=== PATIENT | male | born 1950 | race Two or more races ===

== ENCOUNTER 2023-03-04 05:16 | Inpatient (IN) | payer OTHER ==
[~2023-03-04] VITALS: Ht 175.3 cm; Wt 105.4 kg
[2023-03-04] MEDS ORDERED: ACCU-CHEK COMFORT CURVE STRIP VI ONE (06:00)
[2023-03-04 06:43] LABS: Basophils # (auto) 0 10 ^3/uL (0-0.2); Basophils % (auto) 0.2 % (0.0-2.0); Eosinophils # (auto) 0 10 ^3/uL (0-0.8); Hematocrit 47.3 % (41.0-53.0); Hemoglobin 15.7 g/dL (13.5-17.5); Lymphocytes # (auto) 0.6 10 ^3/uL (0.4-5.4); Lymphocytes % (auto) 2.7 % (10.0-50.0); Mean Corpuscular Hemoglobin 30.7 pg (28.0-32.0); Mean Corpuscular Hgb Conc. 33.2 g/dL (32.0-36.0); Mean Corpuscular Volume 92.7 fL (80.0-100.0); Monocytes % (auto) 4.7 % (0.0-12.0); Neutrophils # (auto) 19.4 10 ^3/uL (1.6-8.6); Neutrophils % (auto) 92.4 % (37.0-80.0); Nucleated Red Blood Cells % 0.1 %; Red Cell Distribution Width 13.7 % (11.8-14.3)
[2023-03-04] MEDS ORDERED: SODIUM CHLORIDE 0.9% 1,000 ML IV ONE ×2 (06:45)
[2023-03-04 06:46] LABS: Alanine Aminotransferase 76 U/L (7-40); Albumin 3.8 g/dL (3.2-4.8); Alkaline Phosphatase 82 U/L (46-116); Anion Gap 11 (5-15); Aspartate Aminotransferase 60 U/L (13-40); BUN/Creatinine Ratio 26.8 (10.0-20.0); Blood Urea Nitrogen 40 mg/dL (9-23); Calcium 8.3 mg/dL (8.7-10.4); Carbon Dioxide 22 mmol/L (20-30); Chloride 100 mmol/L (98-107); Glucose 192 mg/dL (74-106); Potassium 4.1 mmol/L (3.5-5.1); Sodium 133 mmol/L (136-145)
[2023-03-04 06:47] LABS: Bilirubin, Total 2.1 mg/dL (0.2-1.0); Total Protein 6.1 g/dL (5.7-8.2)
[2023-03-04 07:02] LABS: Lactic Acid w/Reflex 4.5 mmol/L (0.4-2.0)
[2023-03-04] MEDS ORDERED: ASPirin 325 MG TAB PO ONE (07:15)
[2023-03-04] MEDS ORDERED: ENOXAPARIN SOD 100 MG/1 ML SYRINGE SC ONE (07:15)
[2023-03-04 07:54] VITALS: PULSE 113; RESP 20; O2SAT 95
[2023-03-04] MEDS ORDERED: metroNIDAZOLE 500MG/100ML 100 ML IV ONE (08:00)
[2023-03-04] MEDS ORDERED: cefTRIAXone 1GM/50ML D5W 50 ML IV ONE (08:00)
[2023-03-04] MEDS ORDERED: HEPARIN DRIP/D5W 100UNITS/ML 250 ML IV SCH (08:15)
[2023-03-04] MEDS ORDERED: HEPARIN SODIUM (PORCINE) 5000 UNITS/ML 1ML VIAL IV ONE (08:15)
[2023-03-04 08:34] LABS: INR 1.15 (0.9-1.15); Partial Thromboplastin Time 27.8 SEC (24.5-34.5)
[2023-03-04] MEDS ORDERED: NITROGLYCERIN 0.4 MG SL TAB SL PRN (09:30)
[2023-03-04] MEDS ORDERED: DEXTROSE (50%) 50ML SYRG IV PRN (09:30)
[2023-03-04] MEDS ORDERED: MORPHINE SULFATE INJ 2 MG/ml SYRG IV PRN (09:30)
[2023-03-04] MEDS ORDERED: METOPROLOL TARTRATE 25 MG TAB PO ONE (10:15)
[2023-03-04] MEDS ORDERED: IOHEXOL 300 MG/ML 100ML BOTTLE IJ ONE (10:19)
[2023-03-04 10:44] LABS: Triglycerides 224 mg/dL (< 150)
[2023-03-04 10:45] LABS: LDL Cholesterol 117 mg/dL (< 100)
[2023-03-04 10:46] LABS: Cholesterol 175 mg/dL (< 200); HDL Cholesterol 16 mg/dL (40-59)
[2023-03-04] MEDS: SODIUM CHLORIDE 0.9% 1,000 ML IV SCH (11:24)
[2023-03-04] MEDS: ONDANSETRON HCL 4 MG/2 ML VIAL IV PRN ×2 (11:24→18:15)
[2023-03-04] MEDS: MORPHINE SULFATE INJ 2 MG/ml SYRG IV PRN ×2 (11:25→18:16)
[2023-03-04 11:58] LABS: COVID19 ANTIGEN SOFIA FIA NEGATIVE (NEGATIVE); Rapid Influenza A Negative (Negative); Rapid Influenza B Negative (Negative)
[2023-03-04] MEDS: InsuLIN REG 1unit/0.01ml Soln (100units/ml) SC SCH ×2 (12:00→18:00)
[2023-03-04] MEDS: ACCU-CHEK COMFORT CURVE STRIP VI SCH ×2 (12:54→18:00)
[2023-03-04] MEDS: PIPERACILLIN-TAZOB 3.375GM 100 ML IV SCH (13:05)
[2023-03-04] MEDS ORDERED: PIPERACILLIN-TAZOB 3.375GM 100 ML IV SCH (14:00)
[2023-03-04 15:15] LABS: Urine Bacteria NONE SEEN /hpf (None Seen); Urine Blood 3+ /uL (Negative); Urine Clarity Clear (Clear); Urine Color Yellow (Yellow); Urine Protein, UAD 1+ (Negative); Urine WBC 7 /hpf (0 - 3); Urine pH 6.5 (5.0-8.0)
[2023-03-04] MEDS ORDERED: VANCOMYCIN PER PHARMACY 0 MG IV SCH (15:15)
[2023-03-04 15:16] LABS: Urine Specific Gravity > 1.050 (1.001-1.035)
[2023-03-04 15:24] LABS: Amphetamine Screen, Urine Neg (NEGATIVE); Barbiturate Scree,Urine Neg (NEGATIVE); Benzodiazephine Screen, Urine Neg (NEGATIVE); Cannabinoid Screen, Urine Neg (NEGATIVE); Cocaine Screen, Urine Neg (NEGATIVE); Opiate Scree,Urine Neg (NEGATIVE); Phencyclidine Screen, Urine Neg (NEGATIVE)
[2023-03-04] MEDS ORDERED: VANCOMYCIN 1GM/200ML 250 ML IV ONE (15:30)
[2023-03-04 19:50] VITALS: PULSE 119; RESP 38; O2SAT 88
[2023-03-04] MEDS ORDERED: VANCOMYCIN 500 MG in D5W 5% 100 ML IV ONE (22:15)
[2023-03-05] MEDS: ENOXAPARIN SOD 100 MG/1 ML SYRINGE SC SCH ×2 (00:15→00:17)
[2023-03-05] MEDS: METOPROLOL TARTRATE 25 MG TAB PO SCH ×3 (00:16→22:50)
[2023-03-05] MEDS: PIPERACILLIN-TAZOB 3.375GM 100 ML IV SCH ×4 (00:26→22:49)
[2023-03-05] MEDS ORDERED: VANCOMYCIN 500 MG in D5W 5% 100 ML IV SCH ×2 (00:30→09:00)
[2023-03-05 01:29] VITALS: BP 144/83; PULSE 109; PULSE 92; RESP 20; TEMP 99.8; O2SAT 92; O2SAT 95
[2023-03-05] MEDS: SODIUM CHLORIDE 0.9% 1,000 ML IV SCH ×2 (02:10→18:50)
[2023-03-05 05:16] LABS: Basophils # (auto) 0 10 ^3/uL (0-0.2); Basophils % (auto) 0.2 % (0.0-2.0); Eosinophils # (auto) 0 10 ^3/uL (0-0.8); Hematocrit 43.4 % (41.0-53.0); Hemoglobin 14.6 g/dL (13.5-17.5); Lymphocytes % (auto) 6.7 % (10.0-50.0); Mean Corpuscular Hemoglobin 30.7 pg (28.0-32.0); Mean Corpuscular Hgb Conc. 33.6 g/dL (32.0-36.0); Mean Corpuscular Volume 91.3 fL (80.0-100.0); Monocytes # (auto) 0.7 10 ^3/uL (0-1.3); Monocytes % (auto) 4.4 % (0.0-12.0); Neutrophils # (auto) 13.2 10 ^3/uL (1.6-8.6); Neutrophils % (auto) 88.7 % (37.0-80.0); Red Blood Cells 4.75 10^6/uL (4.5-5.90); Red Cell Distribution Width 14.1 % (11.8-14.3); White Blood Cell 14.9 10^3/uL (4.4-10.8)
[2023-03-05 05:42] LABS: Alanine Aminotransferase 66 U/L (7-40); Alkaline Phosphatase 71 U/L (46-116)
[2023-03-05 05:43] LABS: Albumin 3.4 g/dL (3.2-4.8); Anion Gap 10 (5-15); Aspartate Aminotransferase 94 U/L (13-40); BUN/Creatinine Ratio 26.4 (10.0-20.0); Bilirubin, Total 1.9 mg/dL (0.2-1.0); Blood Urea Nitrogen 39 mg/dL (9-23); Carbon Dioxide 20 mmol/L (20-30); Chloride 103 mmol/L (98-107); Glucose 131 mg/dL (74-106); Potassium 3.6 mmol/L (3.5-5.1); Sodium 133 mmol/L (136-145); Total Protein 5.9 g/dL (5.7-8.2)
[2023-03-05] MEDS: ACETAMINOPHEN 325 MG TAB PO PRN (06:24)
[2023-03-05 08:00] VITALS: PULSE 106; PULSE 85; RESP 21; O2SAT 93
[2023-03-05] MEDS ORDERED: cefTRIAXone 1GM/50ML D5W 50 ML IV SCH (09:00)
[2023-03-05] MEDS: VANCOMYCIN 1GM/200ML 250 ML IV SCH (09:01)
[2023-03-05] MEDS: ASPirin 81 mg TAB PO SCH (09:02)
[2023-03-05] MEDS ORDERED: ENOXAPARIN SOD 40 MG/0.4 ML SYRINGE SC SCH (10:00)
[2023-03-05 12:00] VITALS: BP 123/69; PULSE 81; RESP 21; TEMP 98.1; O2SAT 93
[2023-03-05] MEDS ORDERED: GADOTERATE MEG 10 MMOL/20ml INJ (0.5MMOL/ml) IV ONE (14:02)
[2023-03-05] MEDS ORDERED: TRAM50TA2 PO (15:46)
[2023-03-05] MEDS ORDERED: VALA500T33 PO (15:46)
[2023-03-05] MEDS ORDERED: METH4TAB9 PO (15:46)
[2023-03-05] MEDS ORDERED: LISI40TA16 PO (15:46)
[2023-03-05 16:00] VITALS: BP 115/56; PULSE 87; RESP 22; TEMP 97.8; O2SAT 90
[2023-03-05] MEDS ORDERED: MORPHINE SULFATE INJ 2 MG/ml SYRG IV PRN ×2 (16:30→18:15)
[2023-03-05] MEDS ORDERED: NITROGLYCERIN 0.4 MG SL TAB SL PRN ×2 (16:30→18:15)
[2023-03-05] MEDS: MORPHINE SULFATE INJ 2 MG/ml SYRG IV PRN (17:04)
[2023-03-05] MEDS ORDERED: SODIUM CHLORIDE 0.9% 250 ML IV ONE (18:00)
[2023-03-05] MEDS ORDERED: LIDOCAINE HCL 2% TOP JELLY 5ML TOP PRN (18:00)
[2023-03-05 20:00] VITALS: PULSE 83; PULSE 92; RESP 21; O2SAT 94
[2023-03-05 20:53] VITALS: BP 122/71; PULSE 89; RESP 16; TEMP 97.8; O2SAT 90
[2023-03-05] MEDS: CLINDAMYCIN 900MG IV 50 ML IV SCH (20:56)
[2023-03-05] MEDS: VALACYCLOVIR HCL 500 MG TAB PO SCH (22:00)
[2023-03-06] VITALS (35 sets, daily range): BP systolic 113–147; BP diastolic 54–80; PULSE 75–88; RESP 20–40; TEMP 98.4–98.9; O2SAT 87–96
[2023-03-06] MEDS: VANCOMYCIN 1GM/200ML 250 ML IV SCH ×2 (03:31→22:04)
[2023-03-06] MEDS: SODIUM CHLORIDE 0.9% 1,000 ML IV SCH (03:33)
[2023-03-06 05:05] LABS: Basophils # (auto) 0 10 ^3/uL (0-0.2); Basophils % (auto) 0.1 % (0.0-2.0); Eosinophils # (auto) 0 10 ^3/uL (0-0.8); Hematocrit 41.2 % (41.0-53.0); Hemoglobin 13.8 g/dL (13.5-17.5); Lymphocytes # (auto) 0.8 10 ^3/uL (0.4-5.4); Lymphocytes % (auto) 6.2 % (10.0-50.0); Mean Corpuscular Hemoglobin 31.1 pg (28.0-32.0); Mean Corpuscular Hgb Conc. 33.4 g/dL (32.0-36.0); Mean Corpuscular Volume 93.2 fL (80.0-100.0); Monocytes # (auto) 0.6 10 ^3/uL (0-1.3); Monocytes % (auto) 4.5 % (0.0-12.0); Neutrophils # (auto) 11.6 10 ^3/uL (1.6-8.6); Neutrophils % (auto) 89.2 % (37.0-80.0); Red Blood Cells 4.42 10^6/uL (4.5-5.90); Red Cell Distribution Width 14.2 % (11.8-14.3)
[2023-03-06 05:06] LABS: Alanine Aminotransferase 78 U/L (7-40); Albumin 3.1 g/dL (3.2-4.8); Alkaline Phosphatase 74 U/L (46-116); Anion Gap 10 (5-15); Aspartate Aminotransferase 106 U/L (13-40); BUN/Creatinine Ratio 34.3 (10.0-20.0); Blood Urea Nitrogen 46 mg/dL (9-23); Calcium 7.9 mg/dL (8.7-10.4); Carbon Dioxide 21 mmol/L (20-30); Chloride 104 mmol/L (98-107); Glucose 132 mg/dL (74-106); Potassium 3.5 mmol/L (3.5-5.1); Sodium 135 mmol/L (136-145)
[2023-03-06 05:07] LABS: Bilirubin, Total 1.3 mg/dL (0.2-1.0); Total Protein 5.3 g/dL (5.7-8.2)
[2023-03-06] MEDS: CLINDAMYCIN 900MG IV 50 ML IV SCH ×3 (05:09→23:11)
[2023-03-06] MEDS: PIPERACILLIN-TAZOB 3.375GM 100 ML IV SCH ×2 (06:22→15:00)
[2023-03-06] MEDS: VALACYCLOVIR HCL 500 MG TAB PO SCH ×2 (08:20→14:00)
[2023-03-06] MEDS: METOPROLOL TARTRATE 25 MG TAB PO SCH ×2 (08:24→22:04)
[2023-03-06] MEDS: ASPirin 81 mg TAB PO SCH (08:25)
[2023-03-06] MEDS ORDERED: LIDOCAINE 1% (LOCAL ANESTH.) PF 5ml SDV ONE (14:24)
[2023-03-06] MEDS: traMADol HCL 50 MG TAB PO PRN (15:00)
[2023-03-06 15:12] LABS: INR 1.09 (0.9-1.15); Prothrombin Time 11.4 sec (9.3-11.8)
[2023-03-06 17:24] LABS: Protein, CSF 117.2 mg/dL (15-45)
[2023-03-06 17:49] LABS: CSF White Blood Cells 31 CUMM (0-5)
[2023-03-06] MEDS: FLUCONAZOLE 200MG/100ML 100 ML IV SCH (20:50)
[2023-03-06] MEDS: CEFTRIAXONE SODIUM 2 GM in D5W 5% 100 ML IV SCH (21:00)
[2023-03-06] MEDS: ACYCLOVIR SOD 50MG/ML 800 MG in SODIUM CHL 0.9% 250 ML IV SCH (22:00)
[2023-03-07] VITALS (25 sets, daily range): BP systolic 106–152; BP diastolic 54–85; PULSE 72–103; RESP 17–36; TEMP 97.6–98.1; O2SAT 87–97
[2023-03-07] MEDS: PIPERACILLIN-TAZOB 3.375GM 100 ML IV SCH ×4 (00:21→21:49)
[2023-03-07] MEDS: SODIUM CHLORIDE 0.9% 1,000 ML IV SCH ×2 (04:10→20:50)
[2023-03-07] MEDS: CLINDAMYCIN 900MG IV 50 ML IV SCH ×3 (04:59→21:05)
[2023-03-07] MEDS: traMADol HCL 50 MG TAB PO PRN (05:27)
[2023-03-07] MEDS: ACYCLOVIR SOD 50MG/ML 800 MG in SODIUM CHL 0.9% 250 ML IV SCH ×3 (08:14→21:50)
[2023-03-07 08:17] LABS: Alanine Aminotransferase 100 U/L (7-40); Albumin 2.9 g/dL (3.2-4.8); Alkaline Phosphatase 86 U/L (46-116); Anion Gap 8 (5-15); Aspartate Aminotransferase 129 U/L (13-40); BUN/Creatinine Ratio 39.7 (10.0-20.0); Bilirubin, Total 1.7 mg/dL (0.2-1.0); Blood Urea Nitrogen 46 mg/dL (9-23); Calcium 7.5 mg/dL (8.5-10.1); Carbon Dioxide 22 mmol/L (20-30); Chloride 106 mmol/L (98-107); Glucose 144 mg/dL (74-106); Potassium 3.5 mmol/L (3.5-5.1); Sodium 136 mmol/L (136-145); Total Protein 5.3 g/dL (5.7-8.2)
[2023-03-07 08:22] LABS: Basophils # (auto) 0 10 ^3/uL (0-0.2); Basophils % (auto) 0.1 % (0.0-2.0); Eosinophils # (auto) 0 10 ^3/uL (0-0.8); Eosinophils % (auto) 0.2 % (0.0-7.0); Hematocrit 38.5 % (41.0-53.0); Hemoglobin 12.7 g/dL (13.5-17.5); Lymphocytes # (auto) 1.2 10 ^3/uL (0.4-5.4); Lymphocytes % (auto) 6.3 % (10.0-50.0); Mean Corpuscular Hemoglobin 30.6 pg (28.0-32.0); Mean Corpuscular Volume 92.8 fL (80.0-100.0); Monocytes # (auto) 0.7 10 ^3/uL (0-1.3); Monocytes % (auto) 3.6 % (0.0-12.0); Neutrophils # (auto) 16.7 10 ^3/uL (1.6-8.6); Neutrophils % (auto) 89.8 % (37.0-80.0); Red Blood Cells 4.15 10^6/uL (4.5-5.90); Red Cell Distribution Width 14.3 % (11.8-14.3); White Blood Cell 18.6 10^3/uL (4.4-10.8)
[2023-03-07 08:43] LABS: Platelet Estimate Decreased
[2023-03-07 08:44] LABS: Polychromasia Slight
[2023-03-07] MEDS: CEFTRIAXONE SODIUM 2 GM in D5W 5% 100 ML IV SCH ×2 (09:32→21:09)
[2023-03-07] MEDS: ASPirin 81 mg TAB PO SCH (10:33)
[2023-03-07] MEDS: FLUCONAZOLE 200MG/100ML 100 ML IV SCH ×2 (10:34→11:27)
[2023-03-07] MEDS: METOPROLOL TARTRATE 25 MG TAB PO SCH ×2 (10:34→21:50)
[2023-03-07 11:00] LABS: Erythrocyte Sedimentation Rate 60 mm/hr (0-20)
[2023-03-07] MEDS: VANCOMYCIN 1GM/200ML 250 ML IV SCH ×2 (11:31→21:02)
[2023-03-08] VITALS (26 sets, daily range): BP systolic 119–166; BP diastolic 58–79; PULSE 80–108; RESP 20–36; TEMP 97.7–99.7; O2SAT 90–96
[2023-03-08 04:06] LABS: Hematocrit 38.1 % (41.0-53.0); Hemoglobin 12.6 g/dL (13.5-17.5); Mean Corpuscular Hemoglobin 31.2 pg (28.0-32.0); Mean Corpuscular Hgb Conc. 33.1 g/dL (32.0-36.0); Mean Corpuscular Volume 94.3 fL (80.0-100.0); Red Blood Cells 4.04 10^6/uL (4.5-5.90); Red Cell Distribution Width 14.5 % (11.8-14.3); White Blood Cell 17.7 10^3/uL (4.4-10.8)
[2023-03-08 04:08] LABS: Alanine Aminotransferase 105 U/L (7-40); Albumin 2.7 g/dL (3.2-4.8); Alkaline Phosphatase 97 U/L (46-116); Anion Gap 8 (5-15); Aspartate Aminotransferase 108 U/L (13-40); BUN/Creatinine Ratio 30.8 (10.0-20.0); Bilirubin, Total 1.3 mg/dL (0.2-1.0); Calcium 7.2 mg/dL (8.7-10.4); Carbon Dioxide 21 mmol/L (20-30); Chloride 107 mmol/L (98-107); Glucose 122 mg/dL (74-106); Potassium 3.6 mmol/L (3.5-5.1); Sodium 136 mmol/L (136-145); Total Protein 5.2 g/dL (5.7-8.2)
[2023-03-08 04:14] LABS: Blood Urea Nitrogen 36 mg/dL (9-23)
[2023-03-08 04:18] LABS: Basophils % (manual) 0 (0.0-2.0); Blast Cells 0; Eosinophils % (manual) 0 (0-7); Metamyelocytes % 0; Myelocytes % 0; Promyelocytes % 0; Reactive Lymphocytes 0
[2023-03-08] MEDS: CLINDAMYCIN 900MG IV 50 ML IV SCH (04:33)
[2023-03-08] MEDS: PIPERACILLIN-TAZOB 3.375GM 100 ML IV SCH ×3 (05:30→22:12)
[2023-03-08] MEDS: ACYCLOVIR SOD 50MG/ML 800 MG in SODIUM CHL 0.9% 250 ML IV SCH ×3 (05:30→22:13)
[2023-03-08] MEDS: VANCOMYCIN 1GM/200ML 250 ML IV SCH ×2 (06:32→18:02)
[2023-03-08 07:58] LABS: Band Neutrophils % (manual) 2; Lymphocytes % (manual) 7 (10.0-50.0)
[2023-03-08 07:59] LABS: Monocytes % (manual) 1 (0-12); Platelet Estimate Adequate
[2023-03-08] MEDS: HYDROcodone-ACET 5/325MG TAB PO PRN (08:27)
[2023-03-08] MEDS: CEFTRIAXONE SODIUM 2 GM in D5W 5% 100 ML IV SCH ×2 (08:58→20:56)
[2023-03-08] MEDS: METOPROLOL TARTRATE 25 MG TAB PO SCH ×2 (10:06→21:30)
[2023-03-08] MEDS: ASPirin 81 mg TAB PO SCH (10:06)
[2023-03-08] MEDS: FLUCONAZOLE 200MG/100ML 100 ML IV SCH ×2 (10:06→11:03)
[2023-03-08] MEDS: SODIUM CHLORIDE 0.9% 1,000 ML IV SCH (13:00)
[2023-03-08] MEDS ORDERED: FUROSEMIDE 40 MG/4 ML VIAL IV ONE (14:00)
[2023-03-08 14:35] LABS: Folate (Folic Acid) 5.73 ng/mL (>5.38)
[2023-03-09] VITALS (48 sets, daily range): BP systolic 81–173; BP diastolic 39–76; PULSE 86–107; RESP 10–36; TEMP 98–99.5; O2SAT 91–100
[2023-03-09] MEDS: VANCOMYCIN 1GM/200ML 250 ML IV SCH ×2 (03:35→13:13)
[2023-03-09] MEDS: ONDANSETRON HCL 4 MG/2 ML VIAL IV PRN (04:32)
[2023-03-09] MEDS: ACYCLOVIR SOD 50MG/ML 800 MG in SODIUM CHL 0.9% 250 ML IV SCH (06:16)
[2023-03-09] MEDS: PIPERACILLIN-TAZOB 3.375GM 100 ML IV SCH (06:16)
[2023-03-09 07:06] LABS: Immunoglobulin A 251 mg/dL (61-437); Immunoglobulin G, Serum 689 mg/dL (603-1613); Immunoglobulin M 194 mg/dL (15-143)
[2023-03-09 08:22] LABS: Basophils # (auto) 0.2 10 ^3/uL (0-0.2); Basophils % (auto) 0.7 % (0.0-2.0); Eosinophils # (auto) 0.1 10 ^3/uL (0-0.8); Eosinophils % (auto) 0.2 % (0.0-7.0); Hematocrit 28.6 % (41.0-53.0); Hemoglobin 9.5 g/dL (13.5-17.5); Lymphocytes # (auto) 1.6 10 ^3/uL (0.4-5.4); Lymphocytes % (auto) 7.1 % (10.0-50.0); Mean Corpuscular Hemoglobin 30.7 pg (28.0-32.0); Mean Corpuscular Hgb Conc. 33.1 g/dL (32.0-36.0); Mean Corpuscular Volume 92.6 fL (80.0-100.0); Monocytes # (auto) 0.7 10 ^3/uL (0-1.3); Monocytes % (auto) 2.9 % (0.0-12.0); Neutrophils # (auto) 20.4 10 ^3/uL (1.6-8.6); Neutrophils % (auto) 89.1 % (37.0-80.0); Red Blood Cells 3.08 10^6/uL (4.5-5.90); Red Cell Distribution Width 14.2 % (11.8-14.3); White Blood Cell 22.9 10^3/uL (4.4-10.8)
[2023-03-09 08:34] LABS: Alanine Aminotransferase 73 U/L (7-40); Albumin 2.4 g/dL (3.2-4.8); Alkaline Phosphatase 79 U/L (46-116); Anion Gap 5 (5-15); Aspartate Aminotransferase 56 U/L (13-40); BUN/Creatinine Ratio 42.7 (10.0-20.0); Blood Urea Nitrogen 41 mg/dL (9-23); Calcium 6.9 mg/dL (8.5-10.1); Carbon Dioxide 24 mmol/L (20-30); Chloride 111 mmol/L (98-107); Glucose 156 mg/dL (74-106); Potassium 3.3 mmol/L (3.5-5.1); Sodium 140 mmol/L (136-145)
[2023-03-09 08:35] LABS: Bilirubin, Total 0.6 mg/dL (0.2-1.0); Total Protein 4.6 g/dL (5.7-8.2)
[2023-03-09] MEDS: CEFTRIAXONE SODIUM 2 GM in D5W 5% 100 ML IV SCH (09:00)
[2023-03-09 09:03] LABS: COVID19 ANTIGEN SOFIA FIA NEGATIVE (NEGATIVE)
[2023-03-09 10:06] LABS: Anti-Nuclear Antibody Direct Negative (Negative)
[2023-03-09] MEDS: ASPirin 81 mg TAB PO SCH (10:22)
[2023-03-09] MEDS: FLUCONAZOLE 200MG/100ML 100 ML IV SCH ×2 (10:22→11:02)
[2023-03-09] MEDS: METOPROLOL TARTRATE 25 MG TAB PO SCH ×2 (10:22→22:00)
[2023-03-09] MEDS: SODIUM CHLORIDE 0.9% 1,000 ML IV SCH (13:14)
[2023-03-09] MEDS ORDERED: ACYCLOVIR 10MG/KG Q8HR PER RX 0 ML IV SCH (14:15)
[2023-03-09] MEDS: DAPTOMYCIN IV SCH (17:10)
[2023-03-09] MEDS: SODIUM CHL 0.9% IV SCH (17:10)
[2023-03-09] MEDS ORDERED: NOREPINEPHRINE 8 MG/250ML KIT 250 ML IV SCH (17:15)
[2023-03-09] MEDS: traMADol HCL 50 MG TAB PO PRN (17:39)
[2023-03-09 17:45] LABS: Hematocrit 17.9 % (41.0-53.0)
[2023-03-09] MEDS ORDERED: LACTATED RINGER'S 1,000 ML IV ONE ×2 (17:45→20:15)
[2023-03-09 17:46] LABS: Hemoglobin 5.6 g/dL (13.5-17.5)
[2023-03-09] MEDS: ACYCLOVIR 400 MG TAB PO SCH ×2 (17:57→21:23)
[2023-03-09] MEDS ORDERED: PANTOPRAZOLE 80 MG in SODIUM CHL 0.9% 100 ML IV ONE (18:00)
[2023-03-09] MEDS ORDERED: LIDOCAINE 1% (LOCAL ANESTH.) PF 5ml SDV ONE (18:29)
[2023-03-09] MEDS ORDERED: LIDOCAINE 1% HCL (LOCAL ANESTH.) INJ 20ML MDV SC ONE (18:45)
[2023-03-09] MEDS: PANTOPRAZOLE 40mg/50ML NS AE 50 ML IV SCH (18:47)
[2023-03-09] MEDS ORDERED: LORazepam 0.5 MG TAB PO ONE (19:30)
[2023-03-09] MEDS: OCTREOTIDE ACETATE 500 MCG in SODIUM CHL 0.9% 99 ML IV SCH (21:00)
[2023-03-09] MEDS: NOREPINEPHRINE 8 MG/250ML KIT 250 ML IV SCH (21:02)
[2023-03-09] MEDS: CEFTAROLINE 600 MG in SODIUM CHL 0.9% 250 ML IV SCH (21:17)
[2023-03-09] MEDS: LOSARTAN POTASSIUM 50 MG TAB PO SCH (21:23)
[2023-03-10] VITALS (69 sets, daily range): BP systolic 91–154; BP diastolic 46–83; PULSE 67–95; RESP 14–30; TEMP 97.9–99.4; O2SAT 82–99
[2023-03-10] MEDS: PANTOPRAZOLE 40mg/50ML NS AE 50 ML IV SCH ×5 (01:37→22:24)
[2023-03-10 04:44] LABS: Hematocrit 28.7 % (41.0-53.0); Hemoglobin 9.3 g/dL (13.5-17.5); Mean Corpuscular Hemoglobin 29.3 pg (28.0-32.0); Mean Corpuscular Hgb Conc. 32.5 g/dL (32.0-36.0); Mean Corpuscular Volume 90.3 fL (80.0-100.0); Red Blood Cells 3.18 10^6/uL (4.5-5.90); Red Cell Distribution Width 14.6 % (11.8-14.3); White Blood Cell 26.1 10^3/uL (4.4-10.8)
[2023-03-10] MEDS: OCTREOTIDE ACETATE 500 MCG in SODIUM CHL 0.9% 99 ML IV SCH ×2 (05:07→14:00)
[2023-03-10] MEDS: ACYCLOVIR 400 MG TAB PO SCH ×5 (05:08→22:20)
[2023-03-10 05:10] LABS: Alanine Aminotransferase 74 U/L (7-40); Albumin 1.8 g/dL (3.2-4.8); Alkaline Phosphatase 62 U/L (46-116); Anion Gap 8 (5-15); Aspartate Aminotransferase 60 U/L (13-40); BUN/Creatinine Ratio 30.3 (10.0-20.0); Bilirubin, Total 0.5 mg/dL (0.2-1.0); Blood Urea Nitrogen 47 mg/dL (9-23); Calcium 6.6 mg/dL (8.5-10.1); Carbon Dioxide 21 mmol/L (20-30); Chloride 112 mmol/L (98-107); Glucose 173 mg/dL (74-106); Potassium 4.4 mmol/L (3.5-5.1); Sodium 141 mmol/L (136-145); Total Protein 3.6 g/dL (5.7-8.2)
[2023-03-10 05:16] LABS: Band Neutrophils % (manual) 0; Basophils % (manual) 0 (0.0-2.0); Blast Cells 0; Eosinophils % (manual) 0 (0-7); Metamyelocytes % 0; Myelocytes % 0; Promyelocytes % 0; Reactive Lymphocytes 0
[2023-03-10 06:58] LABS: INR 1.31 (0.9-1.15); Partial Thromboplastin Time 25.9 SEC (24.5-34.5); Prothrombin Time 13.5 sec (9.3-11.8)
[2023-03-10] MEDS ORDERED: LACTATED RINGER'S 1,000 ML IV ONE (09:00)
[2023-03-10 10:01] LABS: Lymphocytes % (manual) 5 (10.0-50.0); Monocytes % (manual) 8 (0-12)
[2023-03-10 10:02] LABS: Platelet Estimate Adequate
[2023-03-10] MEDS: ASPirin 81 mg TAB PO SCH (11:20)
[2023-03-10] MEDS: LOSARTAN POTASSIUM 50 MG TAB PO SCH (11:26)
[2023-03-10] MEDS: METOPROLOL TARTRATE 25 MG TAB PO SCH ×2 (11:27→22:20)
[2023-03-10] MEDS: CEFTAROLINE 600 MG in SODIUM CHL 0.9% 250 ML IV SCH ×2 (12:36→22:21)
[2023-03-10] MEDS: SODIUM CHLORIDE 0.9% 1,000 ML IV SCH (12:45)
[2023-03-10 13:35] LABS: Hematocrit 27.3 % (41.0-53.0); Hemoglobin 8.8 g/dL (13.5-17.5)
[2023-03-10 15:06] LABS: CAP Mandated Reflex to Culture Not Indicated (.); Cryptococcus Antigen CSF Negative (Negative)
[2023-03-10] MEDS ORDERED: LIDOCAINE VISCOUS 2% 15ML UD PO ONE (15:15)
[2023-03-10] MEDS ORDERED: fentaNYL CITRATE 100 MCG/2 ML VL IV ONE ×2 (15:15)
[2023-03-10] MEDS ORDERED: MIDAZOLAM HCL 2MG/2ML 2ml VIAL (1mg/ml) IV ONE ×2 (15:15)
[2023-03-10] MEDS: DAPTOMYCIN IV SCH (17:05)
[2023-03-10] MEDS: SODIUM CHL 0.9% IV SCH (17:05)
[2023-03-10] MEDS: NOREPINEPHRINE 8 MG/250ML KIT 250 ML IV SCH (17:06)
[2023-03-10 18:20] LABS: Hematocrit 24.5 % (41.0-53.0); Hemoglobin 8.1 g/dL (13.5-17.5)
[2023-03-10] MEDS: ACETAMINOPHEN 325 MG TAB PO PRN (22:46)
[2023-03-11] VITALS (45 sets, daily range): BP systolic 112–167; BP diastolic 46–67; PULSE 67–79; RESP 15–27; TEMP 97.1–98.3; O2SAT 92–100
[2023-03-11 05:07] LABS: RPR Non Reactive (Non Reactive)
[2023-03-11] MEDS: ACYCLOVIR 400 MG TAB PO SCH ×5 (05:28→22:42)
[2023-03-11] MEDS: PANTOPRAZOLE 40mg/50ML NS AE 50 ML IV SCH ×5 (05:29→20:06)
[2023-03-11] MEDS: OCTREOTIDE ACETATE 500 MCG in SODIUM CHL 0.9% 99 ML IV SCH ×3 (05:29→20:05)
[2023-03-11 05:45] LABS: Alanine Aminotransferase 46 U/L (7-40); Albumin 2.3 g/dL (3.2-4.8); Alkaline Phosphatase 55 U/L (46-116); Anion Gap 6 (5-15); Aspartate Aminotransferase 26 U/L (13-40); BUN/Creatinine Ratio 36.3 (10.0-20.0); Calcium 7.3 mg/dL (8.5-10.1); Carbon Dioxide 24 mmol/L (20-30); Chloride 114 mmol/L (98-107); Glucose 158 mg/dL (74-106); Potassium 4.2 mmol/L (3.5-5.1); Sodium 144 mmol/L (136-145)
[2023-03-11 05:46] LABS: Bilirubin, Total 0.4 mg/dL (0.2-1.0); Total Protein 4.1 g/dL (5.7-8.2)
[2023-03-11 06:05] LABS: Blood Urea Nitrogen 66 mg/dL (9-23)
[2023-03-11 06:15] LABS: Hemoglobin 7.1 g/dL (13.5-17.5); Mean Corpuscular Hgb Conc. 32.2 g/dL (32.0-36.0); Mean Corpuscular Volume 89.9 fL (80.0-100.0); Red Blood Cells 2.44 10^6/uL (4.5-5.90); Red Cell Distribution Width 14.9 % (11.8-14.3); White Blood Cell 20.1 10^3/uL (4.4-10.8)
[2023-03-11 06:21] LABS: Band Neutrophils % (manual) 0; Basophils % (manual) 0 (0.0-2.0); Blast Cells 0; Reactive Lymphocytes 0
[2023-03-11] MEDS: ACETAMINOPHEN 325 MG TAB PO PRN (09:05)
[2023-03-11] MEDS: LOSARTAN POTASSIUM 50 MG TAB PO SCH (09:38)
[2023-03-11] MEDS: METOPROLOL TARTRATE 25 MG TAB PO SCH ×2 (09:38→22:42)
[2023-03-11] MEDS: CEFTAROLINE 600 MG in SODIUM CHL 0.9% 250 ML IV SCH ×2 (09:45→22:42)
[2023-03-11] MEDS: HYDROcodone-ACET 5/325MG TAB PO PRN ×2 (10:58→17:32)
[2023-03-11 12:07] LABS: Eosinophils % (manual) 3 (0-7); Lymphocytes % (manual) 8 (10.0-50.0); Metamyelocytes % 8; Monocytes % (manual) 7 (0-12); Myelocytes % 1; Promyelocytes % 1
[2023-03-11 12:08] LABS: Platelet Estimate Adequate
[2023-03-11] MEDS: SOD CHL 0.45% 1,000 ML IV SCH (14:20)
[2023-03-11] MEDS: SODIUM CHL 0.9% IV SCH (14:57)
[2023-03-11] MEDS: DAPTOMYCIN IV SCH (14:57)
[2023-03-11] MEDS: NOREPINEPHRINE 8 MG/250ML KIT 250 ML IV SCH (18:00)
[2023-03-12] VITALS (46 sets, daily range): BP systolic 137–184; BP diastolic 56–72; PULSE 0–77; RESP 11–28; TEMP 97.9–98.6; O2SAT 90–96
[2023-03-12] MEDS: SOD CHL 0.45% 1,000 ML IV SCH ×4 (00:29→19:49)
[2023-03-12] MEDS: PANTOPRAZOLE 40mg/50ML NS AE 50 ML IV SCH ×6 (00:32→19:48)
[2023-03-12] MEDS ORDERED: PANTOPRAZOLE 40 MG/10 ML VIAL INJ IV ONE (03:30)
[2023-03-12] MEDS: HYDROcodone-ACET 5/325MG TAB PO PRN (04:19)
[2023-03-12] MEDS: OCTREOTIDE ACETATE 500 MCG in SODIUM CHL 0.9% 99 ML IV SCH (06:02)
[2023-03-12] MEDS: hydrALAZINE HCL 25 MG TAB PO PRN ×3 (06:02→22:02)
[2023-03-12] MEDS: ACYCLOVIR 400 MG TAB PO SCH ×5 (06:02→21:29)
[2023-03-12 06:42] LABS: Alanine Aminotransferase 34 U/L (7-40); Albumin 2.4 g/dL (3.2-4.8); Alkaline Phosphatase 65 U/L (46-116); Anion Gap 7 (5-15); Aspartate Aminotransferase 22 U/L (13-40); BUN/Creatinine Ratio 28.3 (10.0-20.0); Bilirubin, Total 1.1 mg/dL (0.2-1.0); Carbon Dioxide 21 mmol/L (20-30); Chloride 115 mmol/L (98-107); Glucose 117 mg/dL (74-106); Potassium 4.2 mmol/L (3.5-5.1); Sodium 143 mmol/L (136-145)
[2023-03-12 06:43] LABS: Total Protein 4.4 g/dL (5.7-8.2)
[2023-03-12 06:52] LABS: Blood Urea Nitrogen 52 mg/dL (9-23)
[2023-03-12 07:21] LABS: Hematocrit 30.8 % (41.0-53.0); Hemoglobin 10.5 g/dL (13.5-17.5); Mean Corpuscular Hemoglobin 30.8 pg (28.0-32.0); Mean Corpuscular Hgb Conc. 34.2 g/dL (32.0-36.0); Mean Corpuscular Volume 90.2 fL (80.0-100.0); Red Blood Cells 3.41 10^6/uL (4.5-5.90); Red Cell Distribution Width 14.3 % (11.8-14.3); White Blood Cell 18.4 10^3/uL (4.4-10.8)
[2023-03-12 07:35] LABS: Basophils % (manual) 0 (0.0-2.0); Blast Cells 0; Metamyelocytes % 0; Myelocytes % 0; Promyelocytes % 0; Reactive Lymphocytes 0
[2023-03-12] MEDS: traMADol HCL 50 MG TAB PO PRN (08:36)
[2023-03-12 10:06] LABS: Angiotensin-Converting Enzyme 11 U/L (14-82)
[2023-03-12] MEDS: CEFTAROLINE 600 MG in SODIUM CHL 0.9% 250 ML IV SCH ×2 (10:28→21:28)
[2023-03-12] MEDS: METOPROLOL TARTRATE 25 MG TAB PO SCH ×2 (10:29→21:29)
[2023-03-12] MEDS: LOSARTAN POTASSIUM 50 MG TAB PO SCH (10:29)
[2023-03-12] MEDS: NOREPINEPHRINE 8 MG/250ML KIT 250 ML IV SCH (11:28)
[2023-03-12 12:10] LABS: Band Neutrophils % (manual) 1; Eosinophils % (manual) 1 (0-7); Lymphocytes % (manual) 9 (10.0-50.0); Monocytes % (manual) 4 (0-12)
[2023-03-12 12:11] LABS: Platelet Estimate Adequate
[2023-03-12 14:56] LABS: COVID19 ANTIGEN SOFIA FIA NEGATIVE (NEGATIVE)
[2023-03-12] MEDS: DAPTOMYCIN IV SCH (15:31)
[2023-03-12] MEDS: SODIUM CHL 0.9% IV SCH (15:31)
[2023-03-13] VITALS: BP 170/72; PULSE 70; PULSE 74; RESP 23; RESP 27; TEMP 98.4; O2SAT 92; O2SAT 93
[2023-03-24] MEDS ORDERED: AML5T PO ×2 (20:45)
[2023-03-24] MEDS ORDERED: MET50T PO ×2 (20:45)
[2023-03-24] MEDS ORDERED: NITR0.4S29 SL ×2 (20:45)
[2023-03-24] MEDS ORDERED: APIX5TAB PO ×2 (20:45)
[2023-03-24] MEDS ORDERED: CLOP75TA70 PO ×2 (20:45)
[2023-03-24] MEDS ORDERED: ATOR20TA50 PO ×2 (20:45)
== END 2023-03-13 00:30 | disposition short-term general hospital (02) | DRG 871 ==
LOC: EDBD 05:16 → ER 05:16 → TELE 09:23 → TELE-WESTW 23:51 → OBSVTOIN 03-05 18:16 → ICU WEST 03-05 23:26 → DOU IN ICU 03-11 18:59
PROVIDERS: ADMIT Student in an Organized Health Care Education/Training Program; ATTEND Student in an Organized Health Care Education/Training Program
PROC: 009U3ZX Drainage of Spinal Canal, Percutaneous Approach, Diagnostic (ICD-10-PCS; 2023-03-06)
PROC: 30233N1 Transfusion of Nonautologous Red Blood Cells into Peripheral Vein, Percutaneous Approach (ICD-10-PCS; 2023-03-09)
PROC: 05HA33Z Insertion of Infusion Device into Left Brachial Vein, Percutaneous Approach (ICD-10-PCS; 2023-03-09)
PROC: B54NZZA Ultrasonography of Left Upper Extremity Veins, Guidance (ICD-10-PCS; 2023-03-09)
PROC: B246ZZ4 Ultrasonography of Right and Left Heart, Transesophageal (ICD-10-PCS; principal; 2023-03-10)
PROC: 30233K1 Transfusion of Nonautologous Frozen Plasma into Peripheral Vein, Percutaneous Approach (ICD-10-PCS; 2023-03-10)
DX: A41.02 Sepsis due to Methicillin resistant Staphylococcus aureus (principal); G03.9 Meningitis, unspecified; G06.2 Extradural and subdural abscess, unspecified; J96.01 Acute respiratory failure with hypoxia; I21.A1 Myocardial infarction type 2; J18.9 Pneumonia, unspecified organism; I26.90 Septic pulmonary embolism without acute cor pulmonale; I33.0 Acute and subacute infective endocarditis; K68.12 Psoas muscle abscess; N17.9 Acute kidney failure, unspecified; M62.82 Rhabdomyolysis; I76 Septic arterial embolism; K92.2 Gastrointestinal hemorrhage, unspecified; Z20.822 Contact with and (suspected) exposure to COVID-19; R65.20 Severe sepsis without septic shock; B02.9 Zoster without complications; E66.9 Obesity, unspecified; I10 Essential (primary) hypertension; D64.9 Anemia, unspecified; E78.5 Hyperlipidemia, unspecified; Z68.31 Body mass index [BMI] 31.0-31.9, adult; Z78.9 Other specified health status; Z68.34 Body mass index [BMI] 34.0-34.9, adult
CPT/HCPCS: 36415; 70450; 70553; 71045; 71260; 72142; 72146; 72148; 74176; 74177; 80053; 80061; 80202; 80307; 81001; 82164; 82270; 82550; 82607; 82746; 82784; 82945; 82962; 83036; 83605; 83880; 84157; 84436; 84443; 84484; 85007; 85014; 85018; 85025; 85027; 85610; 85652; 85730; 86038; 86334; 86431; 86592; 86703; 86790; 86850; 86900; 86901; 86920; 87040; 87070; 87077; 87081; 87147; 87186; 87205; 87426; 87493; 87804; 87899; 89051; 92610; 93005; 93306; 93312; 93886; 94010; 99291; C9113; G0378; J0696; J0712; J1450; J2001; J2250; J2405; J2543; J3490; J7060

== ENCOUNTER 2023-03-16 18:08 | Inpatient (IN) | payer OTHER ==
[~2023-03-16] VITALS: Ht 175.3 cm; Wt 91.2 kg
[~2023-03-16 18:08] MED LIST: LISI40TA16 PO; METH4TAB9 PO; TRAM50TA2 PO; VALA500T33 PO
[2023-03-17] VITALS (7 sets, daily range): BP systolic 110–176; BP diastolic 68–75; PULSE 66–80; RESP 16–20; TEMP 97.2–98.3; O2SAT 91–95
[2023-03-17] MEDS ORDERED: MORPHINE SULFATE INJ 2 MG/ml SYRG IV PRN (03:45)
[2023-03-17] MEDS ORDERED: NITROGLYCERIN 0.4 MG SL TAB SL PRN (03:45)
[2023-03-17] MEDS: ACYCLOVIR 400 MG TAB PO SCH (05:23)
[2023-03-17] MEDS: hydrALAZINE HCL 25 MG TAB PO PRN (05:24)
[2023-03-17] MEDS ORDERED: CEFTAROLINE FOSAMIL IV SCH (06:00)
[2023-03-17 09:21] LABS: Basophils # (auto) 0 10 ^3/uL (0-0.2); Eosinophils # (auto) 0 10 ^3/uL (0-0.8); Hemoglobin 8.4 g/dL (13.5-17.5)
[2023-03-17 09:23] LABS: Basophils % (auto) 0.4 % (0.0-2.0); Eosinophils % (auto) 0.4 % (0.0-7.0); Hematocrit 25.5 % (41.0-53.0); Lymphocytes # (auto) 0.9 10 ^3/uL (0.4-5.4); Lymphocytes % (auto) 8.2 % (10.0-50.0); Mean Corpuscular Hemoglobin 31.6 pg (28.0-32.0); Mean Corpuscular Hgb Conc. 33.2 g/dL (32.0-36.0); Mean Corpuscular Volume 95.1 fL (80.0-100.0); Monocytes # (auto) 0.3 10 ^3/uL (0-1.3); Neutrophils # (auto) 9.6 10 ^3/uL (1.6-8.6); Red Blood Cells 2.68 10^6/uL (4.5-5.90); Red Cell Distribution Width 15.2 % (11.8-14.3); White Blood Cell 10.9 10^3/uL (4.4-10.8)
[2023-03-17 09:36] LABS: INR 1.19 (0.9-1.15); Partial Thromboplastin Time 28.2 SEC (24.5-34.5); Prothrombin Time 12.4 sec (9.3-11.8)
[2023-03-17 09:42] LABS: Alanine Aminotransferase 54 U/L (7-40); Albumin 2.7 g/dL (3.2-4.8); Alkaline Phosphatase 91 U/L (46-116); Anion Gap 6 (5-15); Aspartate Aminotransferase 40 U/L (13-40); BUN/Creatinine Ratio 20.4 (10.0-20.0); Bilirubin, Total 1.8 mg/dL (0.2-1.0); Blood Urea Nitrogen 31 mg/dL (9-23); Carbon Dioxide 24 mmol/L (20-30); Chloride 114 mmol/L (98-107); Glucose 94 mg/dL (74-106); Potassium 4.7 mmol/L (3.5-5.1); Sodium 144 mmol/L (136-145); Total Protein 4.7 g/dL (5.7-8.2)
[2023-03-17] MEDS ORDERED: DAPTOMYCIN IV SCH (10:00)
[2023-03-17] MEDS: DAPTOmycin 750 MG in SODIUM CHL 0.9% 50 ML IV SCH (10:00)
[2023-03-17] MEDS: METOPROLOL TARTRATE 50 MG TAB PO SCH (10:00)
[2023-03-17 10:35] LABS: Magnesium 2.1 mg/dL (1.6-2.6)
[2023-03-17] MEDS: SOD CHL 0.45% 1,000 ML IV SCH (11:19)
[2023-03-17] MEDS: CEFTAROLINE IV SCH (11:20)
[2023-03-17] MEDS: SODIUM CHL 0.9% IV SCH (11:20)
[2023-03-17] MEDS: HYDROcodone-ACET 10/325MG TAB PO PRN (16:40)
[2023-03-17] MEDS ORDERED: ENOXAPARIN SOD 100 MG/1 ML SYRINGE SC SCH (22:00)
[2023-03-17] MEDS: MUPIROCIN 2% OINT 15gm or 22gm FOR MRSA NARES EACHNOSTRI SCH (22:53)
[2023-03-18] VITALS (7 sets, daily range): BP systolic 148–167; BP diastolic 64–78; PULSE 67–76; RESP 17–20; TEMP 97.3–98.2; O2SAT 94–96
[2023-03-18] MEDS: hydrALAZINE HCL 20 MG/ML VL IV PRN (04:46)
[2023-03-18 05:31] LABS: Basophils # (auto) 0 10 ^3/uL (0-0.2); Basophils % (auto) 0.2 % (0.0-2.0); Eosinophils # (auto) 0 10 ^3/uL (0-0.8); Eosinophils % (auto) 0.1 % (0.0-7.0); Hematocrit 26.4 % (41.0-53.0); Hemoglobin 8.6 g/dL (13.5-17.5); Lymphocytes # (auto) 0.8 10 ^3/uL (0.4-5.4); Lymphocytes % (auto) 6.7 % (10.0-50.0); Mean Corpuscular Hemoglobin 30.9 pg (28.0-32.0); Mean Corpuscular Hgb Conc. 32.5 g/dL (32.0-36.0); Mean Corpuscular Volume 95.2 fL (80.0-100.0); Monocytes # (auto) 0.5 10 ^3/uL (0-1.3); Neutrophils # (auto) 10.2 10 ^3/uL (1.6-8.6); Red Blood Cells 2.77 10^6/uL (4.5-5.90); Red Cell Distribution Width 15.5 % (11.8-14.3); White Blood Cell 11.5 10^3/uL (4.4-10.8)
[2023-03-18 05:56] LABS: Alanine Aminotransferase 52 U/L (7-40); Albumin 2.8 g/dL (3.2-4.8); Alkaline Phosphatase 102 U/L (46-116); Anion Gap 8 (5-15); Aspartate Aminotransferase 35 U/L (13-40); BUN/Creatinine Ratio 14.9 (10.0-20.0); Blood Urea Nitrogen 22 mg/dL (9-23); Calcium 8.2 mg/dL (8.5-10.1); Carbon Dioxide 23 mmol/L (20-30); Chloride 112 mmol/L (98-107); Glucose 95 mg/dL (74-106); Potassium 4.4 mmol/L (3.5-5.1); Sodium 143 mmol/L (136-145); Total Protein 5.1 g/dL (5.7-8.2)
[2023-03-18] MEDS: FUROSEMIDE 20 MG/2 ML VIAL IV ONE (08:00)
[2023-03-18] MEDS: PANTOPRAZOLE 40 MG/10 ML VIAL INJ IV SCH (08:45)
[2023-03-18] MEDS: ENOXAPARIN SOD 120 MG/0.8 ML SYRINGE SC SCH (10:46)
[2023-03-18] MEDS: amLODIPine BESYLATE 5 MG TAB PO SCH (10:47)
[2023-03-18] MEDS: FUROSEMIDE 20 MG/2 ML VIAL IV SCH (18:06)
[2023-03-18] MEDS: MORPHINE SULFATE INJ 2 MG/ml SYRG IV PRN (19:04)
[2023-03-19] VITALS (8 sets, daily range): BP systolic 137–164; BP diastolic 60–78; PULSE 59–82; RESP 15–22; TEMP 97.3–99.6; O2SAT 94–98
[2023-03-19 10:55] LABS: Anion Gap 7 (5-15); Carbon Dioxide 28 mmol/L (20-30); Chloride 106 mmol/L (98-107); Potassium 3.7 mmol/L (3.5-5.1); Sodium 141 mmol/L (136-145)
[2023-03-19 10:56] LABS: Calcium 8.5 mg/dL (8.5-10.1)
[2023-03-19 11:01] LABS: BUN/Creatinine Ratio 15.3 (10.0-20.0); Blood Urea Nitrogen 24 mg/dL (9-23); Glucose 89 mg/dL (74-106)
[2023-03-19] MEDS: LIDOCAINE 2%HCL (LOCAL ANESTH.) INJ 20ML MDV ONE (11:51)
[2023-03-19] MEDS: MIDAZOLAM HCL 2MG/2ML 2ml VIAL (1mg/ml) ONE (12:05)
[2023-03-19] MEDS: fentaNYL CITRATE 100 MCG/2 ML VL ONE (12:05)
[2023-03-19] MEDS: HEPARIN SODIUM (PORCINE) 5000 UNITS/ML 1ML VIAL ONE (12:05)
[2023-03-19] MEDS: ceFAZolin 1GM/50ML 50 ML IV ONE (12:41)
[2023-03-19 18:37] LABS: Hematocrit 27.7 % (41.0-53.0)
[2023-03-19] MEDS: POLYETHYLENE GLYCOL 17 GM PWDR PO ONE (19:57)
[2023-03-19] MEDS: ATORVASTATIN 20 MG TAB PO SCH (21:43)
[2023-03-19] MEDS: DOCUSATE SOD 100 MG CAP PO SCH (21:46)
[2023-03-20] VITALS (7 sets, daily range): BP systolic 135–153; BP diastolic 57–75; PULSE 64–75; RESP 16–20; TEMP 98.1–99.6; O2SAT 95–97
[2023-03-20 06:10] LABS: Basophils # (auto) 0 10 ^3/uL (0-0.2); Basophils % (auto) 0.5 % (0.0-2.0); Eosinophils # (auto) 0.1 10 ^3/uL (0-0.8); Eosinophils % (auto) 0.6 % (0.0-7.0); Hematocrit 26.5 % (41.0-53.0); Hemoglobin 8.7 g/dL (13.5-17.5); Lymphocytes % (auto) 11.6 % (10.0-50.0); Mean Corpuscular Hemoglobin 30.6 pg (28.0-32.0); Mean Corpuscular Hgb Conc. 32.7 g/dL (32.0-36.0); Mean Corpuscular Volume 93.7 fL (80.0-100.0); Monocytes # (auto) 0.6 10 ^3/uL (0-1.3); Monocytes % (auto) 6.7 % (0.0-12.0); Neutrophils # (auto) 6.7 10 ^3/uL (1.6-8.6); Neutrophils % (auto) 80.6 % (37.0-80.0); Red Blood Cells 2.83 10^6/uL (4.5-5.90); Red Cell Distribution Width 17.1 % (11.8-14.3); White Blood Cell 8.3 10^3/uL (4.4-10.8)
[2023-03-20 06:48] LABS: Alanine Aminotransferase 51 U/L (7-40); Albumin 2.7 g/dL (3.2-4.8); Alkaline Phosphatase 120 U/L (46-116); Anion Gap 7 (5-15); Aspartate Aminotransferase 38 U/L (13-40); BUN/Creatinine Ratio 15.6 (10.0-20.0); Blood Urea Nitrogen 24 mg/dL (9-23); Calcium 8.1 mg/dL (8.5-10.1); Carbon Dioxide 28 mmol/L (20-30); Chloride 105 mmol/L (98-107); Creatine Kinase IFCC 30 U/L (46-171); Glucose 87 mg/dL (74-106); Potassium 3.6 mmol/L (3.5-5.1); Sodium 140 mmol/L (136-145); Total Protein 5.1 g/dL (5.7-8.2)
[2023-03-20] MEDS: ACETAMINOPHEN 325 MG TAB PO PRN (10:47)
[2023-03-20] MEDS: ENOXAPARIN SOD 120 MG/0.8 ML SYRINGE SC SCH (21:20)
[2023-03-21] VITALS (11 sets, daily range): BP systolic 122–159; BP diastolic 58–70; PULSE 62–99; RESP 14–21; TEMP 98.2–99.9; O2SAT 92–98
[2023-03-21 08:48] LABS: Basophils # (auto) 0 10 ^3/uL (0-0.2); Basophils % (auto) 0.5 % (0.0-2.0); Eosinophils # (auto) 0 10 ^3/uL (0-0.8); Eosinophils % (auto) 0.3 % (0.0-7.0); Hematocrit 26.7 % (41.0-53.0); Hemoglobin 8.8 g/dL (13.5-17.5); Lymphocytes # (auto) 0.8 10 ^3/uL (0.4-5.4); Lymphocytes % (auto) 11.3 % (10.0-50.0); Mean Corpuscular Volume 93.9 fL (80.0-100.0); Monocytes # (auto) 0.5 10 ^3/uL (0-1.3); Monocytes % (auto) 6.7 % (0.0-12.0); Neutrophils # (auto) 6.1 10 ^3/uL (1.6-8.6); Neutrophils % (auto) 81.2 % (37.0-80.0); Nucleated Red Blood Cells % 0.1 %; Red Blood Cells 2.84 10^6/uL (4.5-5.90); Red Cell Distribution Width 17.4 % (11.8-14.3); White Blood Cell 7.4 10^3/uL (4.4-10.8)
[2023-03-21 09:11] LABS: Alanine Aminotransferase 50 U/L (7-40); Alkaline Phosphatase 132 U/L (46-116); Anion Gap 5 (5-15); BUN/Creatinine Ratio 15.8 (10.0-20.0); Blood Urea Nitrogen 22 mg/dL (9-23); Calcium 8.4 mg/dL (8.5-10.1); Carbon Dioxide 30 mmol/L (20-30); Chloride 105 mmol/L (98-107); Glucose 88 mg/dL (74-106); Potassium 3.7 mmol/L (3.5-5.1); Sodium 140 mmol/L (136-145)
[2023-03-21 09:12] LABS: Albumin 2.9 g/dL (3.2-4.8); Aspartate Aminotransferase 35 U/L (13-40); Bilirubin, Total 1.6 mg/dL (0.2-1.0); Total Protein 5.4 g/dL (5.7-8.2)
[2023-03-21] MEDS: ONDANSETRON HCL 4 MG/2 ML VIAL IV PRN (09:35)
[2023-03-21] MEDS ORDERED: DOPamine 1600MCG/ML D5W 250 ML IV SCH ×2 (17:30→17:45)
[2023-03-21] MEDS: LIDOCAINE 2%HCL (LOCAL ANESTH.) INJ 20ML MDV ONE (17:51)
[2023-03-21] MEDS: IODIXANOL 320MG/ML 100ML BTL IV ONE ×2 (17:51→18:56)
[2023-03-21] MEDS: ANGIOMAX 250 MG VIAL IV ONE (17:52)
[2023-03-21] MEDS: VERAPAMIL 2.5MG/ML INJ 2ML VIAL IV ONE (17:52)
[2023-03-21] MEDS: HEPARIN SODIUM (PORCINE) 5000 UNITS/ML 1ML VIAL ONE (17:52)
[2023-03-21] MEDS: MIDAZOLAM HCL 2MG/2ML 2ml VIAL (1mg/ml) ONE (17:53)
[2023-03-21] MEDS: fentaNYL CITRATE 100 MCG/2 ML VL ONE (17:53)
[2023-03-21] MEDS: SODIUM CHL 0.9% 50 ML ONE (17:53)
[2023-03-21] MEDS: ATROPINE SULF 1 MG/10ml SYR ONE (18:22)
[2023-03-21] MEDS: EPINEPHrine HCL 1 MG/10 ML SYRG ONE (18:22)
[2023-03-21] MEDS: ASPirin 81 mg TAB ONE (18:56)
[2023-03-21] MEDS: TICAGRELOR 90 MG TAB ONE (18:57)
[2023-03-21] MEDS: ATORVASTATIN 20 MG TAB PO SCH (21:25)
[2023-03-22] VITALS (8 sets, daily range): BP systolic 133–165; BP diastolic 53–73; PULSE 49–70; RESP 16–18; TEMP 97.2–98.9; O2SAT 95–100
[2023-03-22] MEDS: ASPirin 81 mg TAB PO SCH (09:55)
[2023-03-22] MEDS: CLOPIDOGREL BISULFATE 75 MG TAB PO SCH (09:56)
[2023-03-22] MEDS: FUROSEMIDE 20 MG/2 ML VIAL IV SCH (10:01)
[2023-03-22 10:37] LABS: Alanine Aminotransferase 59 U/L (7-40); Alkaline Phosphatase 144 U/L (46-116); Anion Gap 4 (5-15); Aspartate Aminotransferase 46 U/L (13-40); BUN/Creatinine Ratio 12.9 (10.0-20.0); Bilirubin, Total 1.4 mg/dL (0.2-1.0); Blood Urea Nitrogen 17 mg/dL (9-23); Calcium 7.9 mg/dL (8.7-10.4); Carbon Dioxide 27 mmol/L (20-30); Chloride 106 mmol/L (98-107); Glucose 105 mg/dL (74-106); Potassium 3.7 mmol/L (3.5-5.1); Sodium 137 mmol/L (136-145); Total Protein 5.8 g/dL (5.7-8.2)
[2023-03-22 12:09] LABS: Basophils # (auto) 0 10 ^3/uL (0-0.2); Eosinophils # (auto) 0 10 ^3/uL (0-0.8); Hemoglobin 8.4 g/dL (13.5-17.5); Mean Corpuscular Hgb Conc. 32.7 g/dL (32.0-36.0); Monocytes # (auto) 0.7 10 ^3/uL (0-1.3); Red Cell Distribution Width 17.7 % (11.8-14.3)
[2023-03-22 12:10] LABS: Basophils % (auto) 0.3 % (0.0-2.0); Eosinophils % (auto) 0.2 % (0.0-7.0); Hematocrit 25.8 % (41.0-53.0); Lymphocytes # (auto) 0.7 10 ^3/uL (0.4-5.4); Lymphocytes % (auto) 9.6 % (10.0-50.0); Mean Corpuscular Hemoglobin 30.9 pg (28.0-32.0); Mean Corpuscular Volume 94.4 fL (80.0-100.0); Monocytes % (auto) 9.1 % (0.0-12.0); Neutrophils # (auto) 6.1 10 ^3/uL (1.6-8.6); Neutrophils % (auto) 80.8 % (37.0-80.0); Red Blood Cells 2.73 10^6/uL (4.5-5.90); White Blood Cell 7.5 10^3/uL (4.4-10.8)
[2023-03-22] MEDS: CLOPIDOGREL BISULFATE 75 MG TAB PO ONE (12:24)
[2023-03-22] MEDS: hydrALAZINE HCL 20 MG/ML VL IV PRN (17:23)
[2023-03-22] MEDS: ENOXAPARIN SOD 100 MG/1 ML SYRINGE SC SCH (19:53)
[2023-03-22 20:53] LABS: Hematocrit 25.4 % (41.0-53.0); Hemoglobin 8.2 g/dL (13.5-17.5)
[2023-03-23 05:00] VITALS: BP 160/65; PULSE 58; RESP 17; TEMP 97.4; O2SAT 97
[2023-03-23 06:23] LABS: Alanine Aminotransferase 51 U/L (7-40); Albumin 2.6 g/dL (3.2-4.8); Alkaline Phosphatase 141 U/L (46-116); Anion Gap 7 (5-15); Aspartate Aminotransferase 56 U/L (13-40); BUN/Creatinine Ratio 11.8 (10.0-20.0); Blood Urea Nitrogen 15 mg/dL (9-23); Calcium 7.5 mg/dL (8.7-10.4); Carbon Dioxide 27 mmol/L (20-30); Chloride 104 mmol/L (98-107); Glucose 83 mg/dL (74-106); Magnesium 2.1 mg/dL (1.6-2.6); Sodium 138 mmol/L (136-145)
[2023-03-23 06:24] LABS: Bilirubin, Total 1.1 mg/dL (0.2-1.0); Total Protein 5.3 g/dL (5.7-8.2)
[2023-03-23 06:42] LABS: Basophils # (auto) 0 10 ^3/uL (0-0.2); Basophils % (auto) 0.5 % (0.0-2.0); Eosinophils # (auto) 0.1 10 ^3/uL (0-0.8); Eosinophils % (auto) 0.8 % (0.0-7.0); Hematocrit 25.9 % (41.0-53.0); Hemoglobin 8.6 g/dL (13.5-17.5); Lymphocytes % (auto) 15.2 % (10.0-50.0); Mean Corpuscular Hemoglobin 31.1 pg (28.0-32.0); Mean Corpuscular Hgb Conc. 33.1 g/dL (32.0-36.0); Monocytes # (auto) 0.6 10 ^3/uL (0-1.3); Monocytes % (auto) 8.7 % (0.0-12.0); Neutrophils # (auto) 5.1 10 ^3/uL (1.6-8.6); Neutrophils % (auto) 74.8 % (37.0-80.0); Nucleated Red Blood Cells % 0.1 %; Red Blood Cells 2.75 10^6/uL (4.5-5.90); Red Cell Distribution Width 17.5 % (11.8-14.3); White Blood Cell 6.8 10^3/uL (4.4-10.8)
[2023-03-23 08:00] VITALS: PULSE 60; PULSE 70; RESP 18
[2023-03-23 13:00] VITALS: BP 138/57; PULSE 61; RESP 20; TEMP 97.8; O2SAT 97
[2023-03-23 17:00] VITALS: BP 142/52; PULSE 62; RESP 20; TEMP 97.1; O2SAT 97
[2023-03-23 20:00] VITALS: PULSE 71
[2023-03-23 22:00] VITALS: BP 154/57; PULSE 68; RESP 18; TEMP 98.4; O2SAT 97
[2023-03-24] VITALS (7 sets, daily range): BP systolic 128–162; BP diastolic 45–61; PULSE 66–81; RESP 19–20; TEMP 98.1–98.8; O2SAT 94–97
[2023-03-24 08:15] LABS: Basophils # (auto) 0 10 ^3/uL (0-0.2); Eosinophils # (auto) 0.1 10 ^3/uL (0-0.8)
[2023-03-24 08:16] LABS: Basophils % (auto) 0.3 % (0.0-2.0); Hematocrit 24.9 % (41.0-53.0); Hemoglobin 8.4 g/dL (13.5-17.5); Lymphocytes % (auto) 13.3 % (10.0-50.0); Mean Corpuscular Hemoglobin 31.8 pg (28.0-32.0); Mean Corpuscular Hgb Conc. 33.6 g/dL (32.0-36.0); Mean Corpuscular Volume 94.6 fL (80.0-100.0); Monocytes # (auto) 0.6 10 ^3/uL (0-1.3); Monocytes % (auto) 7.7 % (0.0-12.0); Neutrophils # (auto) 5.7 10 ^3/uL (1.6-8.6); Neutrophils % (auto) 77.7 % (37.0-80.0); Red Blood Cells 2.63 10^6/uL (4.5-5.90); Red Cell Distribution Width 17.6 % (11.8-14.3); White Blood Cell 7.3 10^3/uL (4.4-10.8)
[2023-03-24 08:31] LABS: Alanine Aminotransferase 39 U/L (7-40); Alkaline Phosphatase 127 U/L (46-116); Anion Gap 8 (5-15); Aspartate Aminotransferase 25 U/L (13-40); BUN/Creatinine Ratio 16.1 (10.0-20.0); Bilirubin, Total 0.9 mg/dL (0.2-1.0); Blood Urea Nitrogen 19 mg/dL (9-23); Calcium 8.3 mg/dL (8.5-10.1); Carbon Dioxide 26 mmol/L (20-30); Chloride 104 mmol/L (98-107); Glucose 76 mg/dL (74-106); Potassium 3.4 mmol/L (3.5-5.1); Sodium 138 mmol/L (136-145); Total Protein 5.6 g/dL (5.7-8.2)
[2023-03-24 09:07] LABS: Magnesium 1.9 mg/dL (1.6-2.6)
[2023-03-24] MEDS: POLYETHYLENE GLYCOL 17 GM PWDR PO PRN (11:32)
[2023-03-24] MEDS: POTASSIUM CHL 20 Meq TABLET PO ONE (18:48)
[2023-03-24] MEDS: FUROSEMIDE 20 MG/2 ML VIAL IV SCH (18:48)
[2023-03-24] MEDS ORDERED: NITR0.4S29 SL (20:45)
[2023-03-24] MEDS ORDERED: APIX5TAB PO (20:45)
[2023-03-24] MEDS ORDERED: CLOP75TA70 PO (20:45)
[2023-03-24] MEDS ORDERED: MET50T PO (20:45)
[2023-03-24] MEDS ORDERED: AML5T PO (20:45)
[2023-03-24] MEDS ORDERED: ATOR20TA50 PO (20:45)
[2023-03-24] MEDS: APIXABAN 5 MG TAB PO SCH (20:56)
[2023-03-25] VITALS (7 sets, daily range): BP systolic 132–157; BP diastolic 59–71; PULSE 68–82; RESP 17–20; TEMP 37; O2SAT 93–98
[2023-03-25 06:07] LABS: Basophils # (auto) 0 10 ^3/uL (0-0.2); Eosinophils # (auto) 0.1 10 ^3/uL (0-0.8); Hemoglobin 7.4 g/dL (13.5-17.5); Monocytes # (auto) 0.6 10 ^3/uL (0-1.3); Neutrophils # (auto) 4.8 10 ^3/uL (1.6-8.6); Red Cell Distribution Width 17.3 % (11.8-14.3); White Blood Cell 6.6 10^3/uL (4.4-10.8)
[2023-03-25 06:10] LABS: Basophils % (auto) 0.5 % (0.0-2.0); Eosinophils % (auto) 1.7 % (0.0-7.0); Hematocrit 21.9 % (41.0-53.0); Lymphocytes # (auto) 1.1 10 ^3/uL (0.4-5.4); Lymphocytes % (auto) 15.9 % (10.0-50.0); Mean Corpuscular Hemoglobin 31.9 pg (28.0-32.0); Mean Corpuscular Hgb Conc. 33.8 g/dL (32.0-36.0); Mean Corpuscular Volume 94.5 fL (80.0-100.0); Monocytes % (auto) 8.8 % (0.0-12.0); Neutrophils % (auto) 73.1 % (37.0-80.0); Nucleated Red Blood Cells % 0.1 %; Red Blood Cells 2.31 10^6/uL (4.5-5.90)
[2023-03-25 06:25] LABS: Alanine Aminotransferase 33 U/L (7-40); Alkaline Phosphatase 109 U/L (46-116); Anion Gap 6 (5-15); BUN/Creatinine Ratio 18.2 (10.0-20.0); Blood Urea Nitrogen 18 mg/dL (9-23); Calcium 7.7 mg/dL (8.7-10.4); Carbon Dioxide 28 mmol/L (20-30); Chloride 104 mmol/L (98-107); Glucose 89 mg/dL (74-106); Potassium 3.6 mmol/L (3.5-5.1); Sodium 138 mmol/L (136-145)
[2023-03-25 06:26] LABS: Albumin 2.8 g/dL (3.2-4.8); Aspartate Aminotransferase 21 U/L (13-40); Bilirubin, Total 0.8 mg/dL (0.2-1.0); Total Protein 5.2 g/dL (5.7-8.2)
[2023-03-25] MEDS ORDERED: APIX5TAB PO (11:30)
[2023-03-25] MEDS ORDERED: NITR0.4S29 SL (11:30)
[2023-03-25] MEDS ORDERED: MET50T PO (11:30)
[2023-03-25] MEDS ORDERED: AML5T PO (11:30)
[2023-03-25] MEDS ORDERED: ATOR20TA50 PO (11:30)
[2023-03-25] MEDS ORDERED: CLOP75TA70 PO (11:30)
[2023-03-25] MEDS ORDERED: ACET-1882 PO (14:42)
[2023-04-23] MEDS ORDERED: LEVO500T91 PO (11:12)
== END 2023-03-25 18:40 | disposition home health service (06) | DRG 853 ==
LOC: TELE-CENTR 03-17 03:32
PROVIDERS: ADMIT Internal Medicine; ATTEND Student in an Organized Health Care Education/Training Program
PROC: 0JH63XZ Insertion of Tunneled Vascular Access Device into Chest Subcutaneous Tissue and Fascia, Percutaneous Approach (ICD-10-PCS; 2023-03-17)
PROC: 02HV33Z Insertion of Infusion Device into Superior Vena Cava, Percutaneous Approach (ICD-10-PCS; 2023-03-17)
PROC: B5181ZA Fluoroscopy of Superior Vena Cava using Low Osmolar Contrast, Guidance (ICD-10-PCS; 2023-03-17)
PROC: B548ZZA Ultrasonography of Superior Vena Cava, Guidance (ICD-10-PCS; 2023-03-17)
PROC: 027034Z Dilation of Coronary Artery, One Artery with Drug-eluting Intraluminal Device, Percutaneous Approach (ICD-10-PCS; principal; 2023-03-21)
PROC: B240ZZ3 Ultrasonography of Single Coronary Artery, Intravascular (ICD-10-PCS; 2023-03-21)
PROC: B211YZZ Fluoroscopy of Multiple Coronary Arteries using Other Contrast (ICD-10-PCS; 2023-03-21)
DX: A41.02 Sepsis due to Methicillin resistant Staphylococcus aureus (principal); G06.1 Intraspinal abscess and granuloma; K68.12 Psoas muscle abscess; I21.A1 Myocardial infarction type 2; J96.00 Acute respiratory failure, unspecified whether with hypoxia or hypercapnia; R65.21 Severe sepsis with septic shock; I50.31 Acute diastolic (congestive) heart failure; N17.9 Acute kidney failure, unspecified; I76 Septic arterial embolism; I82.623 Acute embolism and thrombosis of deep veins of upper extremity, bilateral; I82.401 Acute embolism and thrombosis of unspecified deep veins of right lower extremity; J98.11 Atelectasis; K92.2 Gastrointestinal hemorrhage, unspecified; M46.27 Osteomyelitis of vertebra, lumbosacral region; I13.0 Hypertensive heart and chronic kidney disease with heart failure and stage 1 through stage 4 chronic kidney disease, or unspecified chronic kidney disease; D64.9 Anemia, unspecified; B02.9 Zoster without complications; E78.5 Hyperlipidemia, unspecified; F32.A Depression, unspecified; I25.10 Atherosclerotic heart disease of native coronary artery without angina pectoris; I66.9 Occlusion and stenosis of unspecified cerebral artery; K59.00 Constipation, unspecified; M46.47 Discitis, unspecified, lumbosacral region; M48.07 Spinal stenosis, lumbosacral region; N18.2 Chronic kidney disease, stage 2 (mild); Z79.899 Other long term (current) drug therapy; Z82.49 Family history of ischemic heart disease and other diseases of the circulatory system; Z86.73 Personal history of transient ischemic attack (TIA), and cerebral infarction without residual deficits; Z86.79 Personal history of other diseases of the circulatory system; M10.9 Gout, unspecified; Y83.8 Other surgical procedures as the cause of abnormal reaction of the patient, or of later complication, without mention of misadventure at the time of the procedure; Y92.89 Other specified places as the place of occurrence of the external cause; R58 Hemorrhage, not elsewhere classified
CPT/HCPCS: 36415; 36558; 71045; 73110; 76937; 77001; 80048; 80053; 82550; 82962; 83605; 83735; 83880; 84484; 85014; 85018; 85025; 85610; 85730; 86850; 86900; 86901; 87040; 87081; 87086; 92941; 92978; 93005; 93306; 93454; 93970; 93971; 97110; 97163; 97530; 99152; C1894; C9113; G0378; J0690; J0712; J2250; J2405; J7042; Q9967

== ENCOUNTER 2023-06-29 11:26 | Emergency (ER) | payer OTHER ==
[~2023-06-29] VITALS: Ht 175.3 cm; Wt 77.2 kg
[~2023-06-29 11:26] MED LIST changes: +ACET-1882 PO; +AML5T PO; +APIX5TAB PO; +ATOR20TA50 PO; +CLOP75TA70 PO; +LEVO500T91 PO; -LISI40TA16 PO; +MET50T PO; -METH4TAB9 PO; +NITR0.4S29 SL; -TRAM50TA2 PO; -VALA500T33 PO
[2023-06-29 13:01] VITALS: BP 164/88; PULSE 90; RESP 16; TEMP 97.9; O2SAT 98
== END 2023-06-29 14:38 | disposition left against medical advice (07) ==
LOC: ER 11:26
DX: Z45.2 Encounter for adjustment and management of vascular access device (principal); Z86.73 Personal history of transient ischemic attack (TIA), and cerebral infarction without residual deficits